=== PATIENT | female | born 1950 | race Caucasian/White ===

== ENCOUNTER → 2019-06-15 17:15 | Outpatient (BNVA) | payer SELFPAY | PROVIDERS: PCP Family Medicine; Visit Provider Emergency Medicine | DX: M25.552 Pain in left hip (principal); M25.562 Pain in left knee; M79.672 Pain in left foot | CPT/HCPCS: 73502; 73562; 73630 ==

== ENCOUNTER → 2019-07-16 13:19 | Outpatient (BNVA) | payer SELFPAY | PROVIDERS: PCP Family Medicine; Visit Provider Family Medicine | DX: M54.40 Lumbago with sciatica, unspecified side (principal); I10 Essential (primary) hypertension; M70.62 Trochanteric bursitis, left hip; I16.0 Hypertensive urgency | CPT/HCPCS: 80053; 80061; 85025 ==